=== PATIENT | male | born 1955 | race Caucasian/White ===

== ENCOUNTER 2016-12-19 18:02 | Emergency (ER) | payer BC ==
[~2016-12-19] VITALS: Ht 170.2 cm; Wt 65.8 kg
[~2016-12-19 18:02] MED LIST: ALPR0.5T PO; ALPR0.5T7 PO; L.AC1CAP6 PO; LEVO500T2 PO; SULF1TAB35 PO
[2016-12-19 19:05] LABS: BILIRUBIN,URINE NEGATIVE (NEGATIVE); KETONES,URINE NEGATIVE (NEGATIVE); LEUKOCYTE ESTERASE ,URINE NEGATIVE (NEGATIVE); NITRITE,URINE NEGATIVE (NEGATIVE); PH,URINE 6 (5-9); PROTEIN,URINE NEGATIVE (NEGATIVE); UROBILINOGEN,URINE NORMAL (NORMAL)
[2016-12-19 19:14] LABS: SQUAMOUS EPITHELIAL CELL,UR 0-2 /HPF
[2016-12-19 19:15] LABS: BASOPHILS % (AUTO) 0 % (0-10); EOSINOPHILS # (AUTO) 0.1 10^3/uL (0.0-0.3); EOSINOPHILS % (AUTO) 1 % (0-10); LYMPHOCYTES # (AUTO) 1.4 X 10^3 (1.0-4.0); LYMPHOCYTES % (AUTO) 15 % (12-44); MEAN CORPUSCULAR HEMOGLOBIN 31 PG (25-34); MEAN CORPUSCULAR HGB CONC 35 G/DL (32-36); MEAN CORPUSCULAR VOLUME 89 FL (80-99); MEAN PLATELET VOLUME 10.2 FL (7.4-10.4); MONOCYTES # (AUTO) 0.9 X 10^3 (0.0-1.0); MONOCYTES % (AUTO) 10 % (0-12); NEUTROPHILS # (AUTO) 6.9 X 10^3 (1.8-7.8); NEUTROPHILS % (AUTO) 74 % (42-75); PLATELET COUNT 196 10^3/uL (130-400); RED BLOOD COUNT 4.79 10^6/uL (4.35-5.85); RED CELL DISTRIBUTION WIDTH 12.7 % (10.0-14.5); WHITE BLOOD COUNT 9.3 10^3/uL (4.3-11.0)
[2016-12-19 19:37] LABS: ALANINE AMINOTRANSFERASE 22 U/L (0-55); ALCOHOL < 10 MG/DL (<10); ANION GAP 15 MMOL/L (5-14); ASPARTATE AMINO TRANSFERASE 27 U/L (5-34); BILIRUBIN,TOTAL 2.7 MG/DL (0.1-1.0); BLOOD UREA NITROGEN 9 MG/DL (7-18); BUN/CREATININE RATIO 10; CALCIUM 8.9 MG/DL (8.5-10.1); CARBON DIOXIDE 19 MMOL/L (21-32); CHLORIDE 108 MMOL/L (98-107); GFR ESTIMATED > 60; GLUCOSE 105 MG/DL (70-105); POTASSIUM 3.1 MMOL/L (3.6-5.0); SODIUM 142 MMOL/L (135-145); TOTAL PROTEIN 6.9 GM/DL (6.4-8.2)
--- NOTE | 2016-12-19 19:51 | ED Psychosocial ---
General Chief Complaint: Psych/Social Disorder Stated Complaint: SUICIDAL Nursing Triage Note: PT. STATES HE THINKS HE HAS SOME TYPE OF "SEXUAL DISEASE". STATES HIS SKIN FEELS DIFFERENT, HIS RETINAS ARE NOW DETACHED. EARLIER WHEN PT. VOIDED, HE SAID HE HAD A BURNING SENSATION. NO BLOOD NOTED IN THE URINE Source: patient, spouse Exam Limitations: no limitations History of Present Illness Time seen by provider: 19:51 Initial Comments 60 yo male patient presents to the ED with c/o possibly having a "sexual disease." States his "skin feels different" and has an "odor that burgos his eyes." Does think his retina's are detached, but denies changes in vision or eye pain. Occasionally has burning with urination. Has had trouble sleeping for several weeks. Patient states he has been having suicidal thoughts, but denies having a plan. Has a h/o attempted suicide by overdose. Denies homicidal ideation. Reports having unprotected sex with another man. is concerned about patient's safety. States they were in [place] and supposed to stay until Sunday, but had to come home due to behavior. Patient was previously at [facility] in [place] 1.5 yrs ago for similar complaints. Patient was on an antidepressant and abilify. Was seen by Dr. Ty a couple of months ago and since patient was feeling better both meds were tapered and then discontinued 2 wks ago. Timing/Duration: other (onset this AM) Associated Symptoms: anxiety, impaired concentration, insomnia, suicidal ideation Allergies and Home Medications Allergies Coded Allergies: No Known Drug Allergies (Unverified , 03/08/15) Constitutional: no symptoms reported EENTM: see HPI Respiratory: No cough, No dyspnea on exertion, No short of breath Cardiovascular: No chest pain, No edema, No palpitations, No syncope Gastrointestinal: No abdominal pain, No constipation, No diarrhea, loss of appetite, No nausea, No vomiting Genitourinary: see HPI, dysuria, No frequency, No hematuria, No pain Musculoskeletal: no symptoms reported Skin: see HPI Psychiatric/Neurological: See HPI All Other Systems Reviewed Negative Unless Noted: Yes (Negative excepted noted.) Past [id number]-[id number] Hx Patient Social History Alcohol Use: Denies Use Recreational Drug Use: No Smoking Status: Never a Smoker 2nd Hand Smoke Exposure: No Recent Foreign Travel: No Contact w/Someone Who Travel: No Recent Infectious Disease Expo: No Seasonal Allergies Seasonal Allergies: Yes Surgeries HX Surgeries: Yes Surgeries: Bowel Surgery, Testicular Respiratory Hx Respiratory Disorders: No Cardiovascular Hx Cardiac Disorders: No Neurological Hx Neurological Disorders: No Reproductive System Hx Reproductive Disorders: No Sexually Transmitted Disease: No HIV/AIDS: No Genitourinary Hx Genitourinary Disorders: Yes Genitourinary Disorders: Kidney Stones Gastrointestinal Hx Gastrointestinal Disorders: Yes Gastrointestinal Disorders: Crohns Disease Musculoskeletal Hx Musculoskeletal Disorders: No Endocrine Hx Endocrine Disorders: No HEENT HX ENT Disorders: No Loss of Vision: Denies Hearing Impairment: Denies Cancer Hx Cancer: No Psychosocial Hx Psychiatric Problems: Yes (HALLUCINATIONS) Behavioral Health Disorders: Anxiety, Depression Integumentary HX Skin/Integumentary Disorder: No Blood Transfusions Hx Blood Disorders: No Adverse Reaction to a Blood Tr: No Reviewed Nursing Assessment Reviewed/Agree w Nursing PMH: Yes Family Medical History Significant Family History: No Pertinent Family Hx, Hypertension Physical Exam Vital Signs Vital Sign - Last 12Hours 12/19/16 18:38 Temp 98.6 Pulse 92 Resp 18 B/P (MAP) 164/97 Pulse Ox 97 O2 Delivery Room Air Capillary Refill : Less Than 3 Seconds General Appearance: WD/WN, no apparent distress HEENT: PERRL/EOMI, normal ENT inspection (unable to appreciate eye redness ), TMs normal, pharynx normal Neck: non-tender, full range of motion, supple, normal inspection Respiratory: lungs clear, normal breath sounds, no respiratory distress Cardiovascular: normal peripheral pulses, regular rate, rhythm, no edema, no murmur Peripheral Pulses: 2+ Dorsalis Pedis (R), 2+ Left Dors-Pedis (L), 2+ Radial Pulses (R), 2+ Radial Pulses (L) Gastrointestinal: normal bowel sounds, non tender, soft, no organomegaly Extremities: normal inspection, no pedal edema, normal capillary refill Neurologic/Psychiatric: rigger up II-XII nml as tested, no motor/sensory deficits, alert, oriented x 3, depressed affect Appearance/Memory: appropriate appearance, neat, no memory impairment, denies illness, impaired insight Behavior/Eye Contact: cooperative, avoids eye contact, decreased rate of speech , compulsive Thoughts/Hallucinations: no apparent hallucination, delusions, flight of ideas , obsessive, paranoid Skin: normal color, warm/dry, No rash (unable to appreciate rash, odor, or skin changes. ) Progress/Results/Core Measures Results/Orders Lab Results Laboratory Tests Test 12/19/16 18:50 12/19/16 19:02 12/19/16 21:03 Range/Units Urine Color YELLOW Urine Clarity CLEAR Urine pH 6 5-[address] 1.010 L 1.016-1.022 Urine Protein NEGATIVE NEGATIVE Urine Glucose (UA) NEGATIVE NEGATIVE Urine Ketones NEGATIVE NEGATIVE Urine Nitrite NEGATIVE NEGATIVE Urine Bilirubin NEGATIVE NEGATIVE Urine Urobilinogen NORMAL NORMAL MG/DL Urine Leukocyte Esterase NEGATIVE NEGATIVE Urine RBC (Auto) NEGATIVE NEGATIVE Urine RBC NONE /HPF Urine WBC NONE /HPF Urine Squamous Epithelial Cells 0-2 /HPF Urine Crystals NONE /LPF Urine Bacteria NONE /HPF Urine Casts NONE /LPF Urine Mucus NEGATIVE /LPF Urine Culture Indicated NO Urine Opiates Screen NEGATIVE NEGATIVE Urine Oxycodone Screen NEGATIVE NEGATIVE Urine Methadone Screen NEGATIVE NEGATIVE Urine Propoxyphene Screen NEGATIVE NEGATIVE Urine Barbiturates Screen NEGATIVE NEGATIVE Ur Tricyclic Antidepressants Screen NEGATIVE NEGATIVE Urine Phencyclidine Screen NEGATIVE NEGATIVE Urine Amphetamines Screen NEGATIVE NEGATIVE Urine Methamphetamines Screen NEGATIVE NEGATIVE Urine Benzodiazepines Screen NEGATIVE NEGATIVE Urine Cocaine Screen NEGATIVE NEGATIVE Urine Cannabinoids Screen NEGATIVE NEGATIVE White Blood Count 9.3 4.3-11.0 10^3/uL Red Blood Count 4.79 4.35-5.85 10^6/uL Hemoglobin 14.7 13.3-17.7 G/DL Hematocrit 42 40-54 % Mean Corpuscular Volume 89 80-99 FL Mean Corpuscular Hemoglobin 31 25-34 PG Mean Corpuscular Hemoglobin Concent 35 32-36 G/DL Red Cell Distribution Width 12.7 10.0-14.5 % Platelet Count 196 130-400 10^3/uL Mean Platelet Volume 10.2 7.4-10.4 FL Neutrophils (%) (Auto) 74 42-75 % Lymphocytes (%) (Auto) 15 12-44 % Monocytes (%) (Auto) 10 0-12 % Eosinophils (%) (Auto) 1 0-10 % Basophils (%) (Auto) 0 0-10 % Neutrophils # (Auto) 6.9 1.8-7.8 X 10^3 Lymphocytes # (Auto) 1.4 1.0-4.0 X 10^3 Monocytes # (Auto) 0.9 0.0-1.0 X 10^3 Eosinophils # (Auto) 0.1 0.0-0.3 10^3/uL Basophils # (Auto) 0.0 0.0-0.1 10^3/uL Sodium Level 142 135-145 MMOL/L Potassium Level 3.1 L 3.6-5.0 MMOL/L Chloride Level 108 H 98-107 MMOL/L Carbon Dioxide Level 19 L 21-32 MMOL/L Anion Gap 15 H 5-14 MMOL/L Blood Urea Nitrogen 9 7-18 MG/DL Creatinine 0.90 0.60-1.30 MG/DL Estimat Glomerular Filtration Rate > 60 BUN/Creatinine Ratio 10 Glucose Level 105 70-105 MG/DL Calcium Level 8.9 8.5-10.1 MG/DL Total Bilirubin 2.7 H 0.1-1.0 MG/DL Aspartate Amino Transf (AST/SGOT) 27 5-34 U/L Alanine Aminotransferase (ALT/SGPT) 22 0-55 U/L Alkaline Phosphatase 63 40-136 U/L Total Protein 6.9 6.4-8.2 GM/DL Albumin 4.0 3.2-4.5 GM/DL TSH [place] Testing 2.26 0.35-4.94 UIU/ML Salicylates Level < 5.0 L 5.0-20.0 MG/DL Acetaminophen Level < 10 L 10-30 UG/ML Serum Alcohol < 10 <10 MG/DL My Orders Orders - KATRINA FAGAN Cory Dna Urine Test (12/19/16 20:24) Hiv 1&2 Antibody (12/19/16 20:24) Hepatitis Panel Acute (12/19/16 20:24) Syphilis Antibody Screen (12/19/16 20:00) Tick Panel With Lyme Eia (12/19/16 20:28) Chlamydia Dna Urine Test (12/19/16 21:03) Ekg Tracing (12/19/16 22:20) Acetaminophen (12/19/16 22:35) Salicylate (12/19/16 22:35) Vital Signs/I&O Vital Sign - Last 12Hours 12/19/16 18:38 Temp 98.6 Pulse 92 Resp 18 B/P (MAP) 164/97 Pulse Ox 97 O2 Delivery Room Air Blood Pressure Mean: 119 ECG Initial ECG Impression Date: Dec 19, 2016 Initial ECG Impression Time: 22:26 Initial ECG Rate: 70 Initial ECG Rhythm: Normal Sinus Initial ECG Intervals: Normal Initial ECG Impression: Normal Initial ECG Comparisson: Unchanged Comment sinus rhythm. No STEMI or arrhythmia noted. ECG reviewed by Dr. Lara. Departure Communication Progress Notes [id number] [facility] contacted. Staff states intake nurse will contact us when finished with the current patient. [phone] Return call accepted from [facility] intake nurse. requests info to be faxed for review. Awaiting tylenol and aspirin results. [phone] information faxed to [facility] at [phone]. Will await return call. [phone] [facility] contacted. Violet to contact the psychiatrist. Impression Impression: Primary Impression: Suicidal ideation Additional Impression: Psychosis Qualified Codes: F29 - Unspecified psychosis not due to a substance or known physiological condition Disposition: 65 XFER TO PSYCH HOSP/UNIT Condition: Stable Transfer Transfer Notes Dr. Solis accepts patient to his inpatient behavioral service. Requests patient to be transported by EMS due to suicidal ideation. Transfer Time: 02:10 Transfer Facility: [facility] Method of Transfer: EMS Departure-Patient Inst. Referrals: GAGAN TY MD (PCP/Family) Primary Care Physician KATRINA FAGAN Dec 19, 2016 19:51
[2016-12-19 22:54] LABS: SALICYLATE < 5.0 MG/DL (5.0-20.0)
[2016-12-19 23:01] LABS: ACETAMINOPHEN < 10 UG/ML (10-30)
[2016-12-20] MEDS ORDERED: diphenhydrAMINE 25 MG TAB (BENADRYL) PO ONE ×2 (02:57→03:15)
[2016-12-20 03:04] VITALS: BP 140/95
[2016-12-21 03:39] LABS: LYME AB G M 0.08 Index (0.00-0.89)
[2016-12-21 07:16] LABS: HIV AG AB SCREEN Non-Reactive (Non-Reactive)
[2016-12-21 07:21] LABS: TULAREMIA ANTIBODY <1:20
[2016-12-21 07:22] LABS: LYME AB INTERP Negative (Negative)
[2016-12-21 12:52] LABS: EHRLICHIA CHAFFEENSIS G ABY <1:16 (<1:16)
[2016-12-21 14:29] LABS: CHLAMYDIA DNA URINE Not Detected (Not Detected); NEISSERIA GONORRHEA DNA URINE Not Detected (Not Detected)
[2016-12-21 14:30] LABS: IGG ROCKY MOUNTAIN SPOTTED FEV <1:16 (<1:16); IGM ROCKY MOUNTAIN SPOTTED FEV <1:10 (<1:10)
== END 2016-12-20 03:04 ==
LOC: EDUNIT# 18:02 → ER 18:04
DX: R45.851 Suicidal ideations (principal); F29 Unspecified psychosis not due to a substance or known physiological condition; F41.9 Anxiety disorder, unspecified; F32.9 Major depressive disorder, single episode, unspecified; K50.90 Crohn's disease, unspecified, without complications; Z87.442 Personal history of urinary calculi; Z98.890 Other specified postprocedural states
CPT/HCPCS: 36415; 80053; 80074; 80306; 80320; 80329; 81000; 84443; 85025; 86618; 86666; 86668; 86703; 86757; 86780; 87491; 87591; 93005